=== PATIENT | female | born 1965 | race Hispanic/Latino ===

== ENCOUNTER 2018-04-13 20:02 | Emergency (ER) | payer OTHER ==
[2018-04-13] MEDS ORDERED: ONDANSETRON HCL 4 MG/2 ML VIAL ONE (22:15)
[2018-04-15] MEDS ORDERED: PROPOFOL 10 MG/ML 20ML VIAL IV ONE (09:47)
== END 2018-04-13 22:06 | disposition home or self-care (01) ==
LOC: EDH 20:02
DX: S90.31XA Contusion of right foot, initial encounter (principal); E11.9 Type 2 diabetes mellitus without complications; E78.5 Hyperlipidemia, unspecified; I10 Essential (primary) hypertension; M81.0 Age-related osteoporosis without current pathological fracture; M79.7 Fibromyalgia; Z88.6 Allergy status to analgesic agent; Z90.49 Acquired absence of other specified parts of digestive tract; Z90.710 Acquired absence of both cervix and uterus; X58.XXXA Exposure to other specified factors, initial encounter; Y93.89 Activity, other specified; Y92.89 Other specified places as the place of occurrence of the external cause; Y99.8 Other external cause status
CPT/HCPCS: 73630; J2405

== ENCOUNTER → 2018-08-05 | Outpatient (CLI) | payer OTHER | END | disposition home or self-care (01) | LOC: RAH 14:09 | PROVIDERS: ATTEND Family Medicine | DX: Z12.31 Encounter for screening mammogram for malignant neoplasm of breast (principal) | CPT/HCPCS: 77067 ==

== ENCOUNTER 2022-03-05 16:58 | Emergency (ER) | payer OTHER ==
[~2022-03-05] VITALS: Ht 154.9 cm; Wt 99.3 kg
[2022-03-05 17:20] LABS: BASOPHILS % (AUTO) 0.3 % (0.0-5.0); EOSINOPHILS % (AUTO) 2.2 % (0.0-8.0); HEMATOCRIT 42.6 % (36-48); LYMPHOCYTES % (AUTO) 30.1 % (21.0-51.0); MEAN CORPUSCULAR HEMOGLOBIN 26.2 pg (27.0-33.0); MEAN CORPUSCULAR HGB CONC 31.7 g/dL (32.0-36.0); MEAN CORPUSCULAR VOLUME 82.7 fL (79-99); MONOCYTES % (AUTO) 6.3 % (3.0-13.0); NEUTROPHILS % (AUTO) 60.6 % (40.0-77.0); PLATELET COUNT (AUTO) 264 K/uL (130-400); RED BLOOD CELL COUNT(AUTO) 5.15 MIL/uL (4.00-5.50); RED CELL DISTRIBUTION WIDTH 14.6 % (11.0-15.5); WHITE BLOOD COUNT (AUTO) 8.8 K/uL (4.8-10.8)
[2022-03-05 17:44] LABS: CREATININE 1.1 mg/dL (0.5-1.5); POTASSIUM 3.8 mmol/L (3.5-5.1)
[2022-03-05 17:50] LABS: ALBUMIN 3.2 g/dL (3.5-5.0); TOTAL PROTEIN, SERUM 7.3 g/dL (6.0-8.3)
[2022-03-05 17:56] LABS: APPEARANCE,URINE CLEAR (CLEAR); BILIRUBIN,URINE NEGATIVE (NEGATIVE); COLOR,URINE YELLOW (YELLOW); GLUCOSE, URINE (UA) NEGATIVE (NEGATIVE); KETONES,URINE NEGATIVE (NEGATIVE); LEUKOCYTE ESTERASE ,URINE NEGATIVE (NEGATIVE); NITRATE,URINE NEGATIVE (NEGATIVE); OCCULT BLOOD,URINE SMALL (NEGATIVE); PROTEIN,URINE NEGATIVE (NEGATIVE); UROBILINOGEN,URINE 0.2 mg/dL (0.2-1.0)
[2022-03-05 18:01] LABS: B-TYPE NATRIURETIC PEPTIDE < 5 pg/mL (0-100)
[2022-03-05 18:11] LABS: RBC,URINE 0-1 /HPF (0-1); WBC,URINE 0-1 /HPF (0-1)
[2022-03-05 18:12] LABS: BACTERIA,URINE Few /HPF (None Seen); SQUAMOUS EPITHELIAL CELL,UR Few /HPF (0-2)
[2022-03-05 19:19] VITALS: BP 141/84
== END 2022-03-05 19:21 | disposition home or self-care (01) ==
LOC: EDH 16:58
DX: R07.89 Other chest pain (principal); E66.01 Morbid (severe) obesity due to excess calories; E11.9 Type 2 diabetes mellitus without complications; E78.00 Pure hypercholesterolemia, unspecified; I10 Essential (primary) hypertension; Z68.41 Body mass index [BMI] 40.0-44.9, adult
CPT/HCPCS: 36415; 71045; 80053; 81001; 82550; 83880; 84484; 85025; 93005

== ENCOUNTER 2022-08-03 16:43 | Emergency (ER) | payer OTHER, SELFPAY ==
[~2022-08-03] VITALS: Ht 154.9 cm; Wt 101.2 kg
[2022-08-03 19:07] LABS: BASOPHILS % (AUTO) 0.4 % (0.0-5.0); HEMATOCRIT 42.5 % (36-48); LYMPHOCYTES % (AUTO) 25.6 % (21.0-51.0); MEAN CORPUSCULAR HEMOGLOBIN 26.9 pg (27.0-33.0); MEAN CORPUSCULAR VOLUME 84.2 fL (79-99); NEUTROPHILS % (AUTO) 64.5 % (40.0-77.0); PLATELET COUNT (AUTO) 285 K/uL (130-400); RED BLOOD CELL COUNT(AUTO) 5.05 MIL/uL (4.00-5.50); RED CELL DISTRIBUTION WIDTH 14.9 % (11.0-15.5); WHITE BLOOD COUNT (AUTO) 11.2 K/uL (4.8-10.8)
[2022-08-03 19:15] LABS: CREATININE 1.1 mg/dL (0.5-1.5)
[2022-08-03 19:20] LABS: ALBUMIN 3.3 g/dL (3.5-5.0)
[2022-08-03 20:14] LABS: APPEARANCE,URINE CLEAR (CLEAR); BILIRUBIN,URINE NEGATIVE (NEGATIVE); COLOR,URINE LIGHT-YELLOW (YELLOW); GLUCOSE, URINE (UA) NEGATIVE (NEGATIVE); KETONES,URINE NEGATIVE (NEGATIVE); LEUKOCYTE ESTERASE ,URINE NEGATIVE Leu/uL (NEGATIVE); NITRATE,URINE NEGATIVE (NEGATIVE); PH,URINE 5.5 (5.0-8.0); PROTEIN,URINE NEGATIVE (NEGATIVE); UROBILINOGEN,URINE 0.2 mg/dL (0.2-1.0)
[2022-08-03 20:18] LABS: BACTERIA,URINE FEW /HPF (None Seen); MUCUS,URINE RARE LPF (None Seen); SQUAMOUS EPITHELIAL CELL,UR RARE /HPF (0-2)
[2022-08-03] MEDS ORDERED: IOHEXOL 350 MG/ML 100ML INFUS..BTL IV ONE (21:49)
[2022-08-03] MEDS ORDERED: DICY10 PO (22:52)
[2022-08-03] MEDS ORDERED: OMEP20TA2 PO (22:52)
[2022-08-03 23:06] VITALS: BP 122/66
== END 2022-08-03 23:08 | disposition home or self-care (01) ==
LOC: EDH 16:43
DX: R10.11 Right upper quadrant pain (principal); R11.0 Nausea; E11.9 Type 2 diabetes mellitus without complications; E78.00 Pure hypercholesterolemia, unspecified; I10 Essential (primary) hypertension; K21.9 Gastro-esophageal reflux disease without esophagitis; Z90.49 Acquired absence of other specified parts of digestive tract; Z90.710 Acquired absence of both cervix and uterus; Z88.5 Allergy status to narcotic agent
CPT/HCPCS: 36415; 74176; 80053; 81001; 83690; 85025; Q9967

== ENCOUNTER 2022-10-01 07:41 | Emergency (ER) | payer OTHER ==
[~2022-10-01] VITALS: Ht 154.9 cm; Wt 104.3 kg
[~2022-10-01 07:41] MED LIST: DICY10 PO; OMEP20TA2 PO
[2022-10-01 08:14] LABS: BASOPHILS % (AUTO) 0.6 % (0.0-5.0); EOSINOPHILS % (AUTO) 3.1 % (0.0-8.0); LYMPHOCYTES % (AUTO) 26.7 % (21.0-51.0); MEAN CORPUSCULAR HEMOGLOBIN 26.2 pg (27.0-33.0); MEAN CORPUSCULAR VOLUME 84.5 fL (79-99); MONOCYTES % (AUTO) 5.7 % (3.0-13.0); NEUTROPHILS % (AUTO) 63.2 % (40.0-77.0); PLATELET COUNT (AUTO) 275 K/uL (130-400); RED BLOOD CELL COUNT(AUTO) 4.97 MIL/uL (4.00-5.50); RED CELL DISTRIBUTION WIDTH 14.6 % (11.0-15.5); WHITE BLOOD COUNT (AUTO) 8.7 K/uL (4.8-10.8)
[2022-10-01 08:25] LABS: APPEARANCE,URINE CLOUDY (CLEAR); BILIRUBIN,URINE NEGATIVE (NEGATIVE); COLOR,URINE YELLOW (YELLOW); GLUCOSE, URINE (UA) NEGATIVE (NEGATIVE); KETONES,URINE NEGATIVE (NEGATIVE); LEUKOCYTE ESTERASE ,URINE NEGATIVE Leu/uL (NEGATIVE); NITRATE,URINE NEGATIVE (NEGATIVE); PH,URINE 5.5 (5.0-8.0); PROTEIN,URINE 10 mg/dL (NEGATIVE); UROBILINOGEN,URINE 0.2 mg/dL (0.2-1.0)
[2022-10-01 08:28] LABS: ALBUMIN 3.2 g/dL (3.5-5.0); POTASSIUM 3.9 mmol/L (3.5-5.1); TOTAL PROTEIN, SERUM 7.5 g/dL (6.0-8.3)
[2022-10-01] MEDS ORDERED: KETOROLAC 15MG/ML VIAL (15MG/ML) IV ONE (08:30)
[2022-10-01] MEDS ORDERED: ONDANSETRON 4MG INJ IV ONE (08:30)
[2022-10-01 08:32] LABS: MUCUS,URINE RARE LPF (None Seen); SQUAMOUS EPITHELIAL CELL,UR MANY /HPF (0-2); WBC,URINE 0-1 /HPF (0-1)
[2022-10-01] MEDS ORDERED: IOHEXOL 350 MG/ML 100ML INFUS..BTL IV ONE (08:44)
[2022-10-01] MEDS ORDERED: IBUP-2077 PO (09:51)
[2022-10-01 10:03] VITALS: BP 122/61
== END 2022-10-01 10:08 | disposition home or self-care (01) ==
LOC: EDH 07:41
DX: R10.11 Right upper quadrant pain (principal); K31.89 Other diseases of stomach and duodenum; I10 Essential (primary) hypertension; E11.9 Type 2 diabetes mellitus without complications; E78.00 Pure hypercholesterolemia, unspecified; J45.909 Unspecified asthma, uncomplicated; K21.9 Gastro-esophageal reflux disease without esophagitis; M19.90 Unspecified osteoarthritis, unspecified site; M79.7 Fibromyalgia; Z88.5 Allergy status to narcotic agent; Z90.49 Acquired absence of other specified parts of digestive tract; Z90.710 Acquired absence of both cervix and uterus; Z98.890 Other specified postprocedural states
CPT/HCPCS: 99285; 74177; 96374; 96375; 80053; 83690; 85025; 81001; 36415; J2405; J1885; Q9967

== ENCOUNTER → 2025-04-02 | Outpatient (CLI) | payer OTHER, MEDICAID ==
[~2025-04-02] MED LIST changes: +GADOTERATE MEGLUMINE 10 MMOL/20 ML VIAL IV ONE; +IBUP-2077 PO
--- NOTE | 2025-04-02 18:13 | HMCIMG ---
EXAM: MR TIB/FIB WITHOUT CONTRAST CLINICAL HISTORY: 59 year old female, mass TECHNIQUE: Multiplanar multisequence magnetic resonance images were obtained WITHOUT contrast. CONTRAST: None COMPARISON: None FINDINGS: JOINTS: Unremarkable. No dislocation or significant effusion. BONE: No acute fracture or focal osseous lesion. SOFT TISSUES: No definite mass identified. Follow-up as clinically indicated. IMPRESSION: 1. No definite mass identified. Follow-up as clinically indicated. /[place]
== END | disposition home or self-care (01) ==
LOC: RAH 08:04
PROVIDERS: ATTEND Family Medicine
DX: R93.89 Abnormal findings on diagnostic imaging of other specified body structures (principal); L98.9 Disorder of the skin and subcutaneous tissue, unspecified
CPT/HCPCS: 73720; A9575

== ENCOUNTER 2025-04-24 21:37 | Emergency (ER) | payer OTHER, MEDICAID ==
[~2025-04-24] VITALS: Ht 152.4 cm; Wt 85.3 kg
[~2025-04-24 21:37] MED LIST changes: -GADOTERATE MEGLUMINE 10 MMOL/20 ML VIAL IV ONE
[2025-04-24 21:39] VITALS: TEMP 97.8
[2025-04-24 22:25] LABS: IMMATURE GRANULOCYTE ABSOLUTE 0.04 K/uL (0-1); NUCLEATED RED BLOOD CELLS 0.0 % (0.0-0.19); PLATELET COUNT (AUTO) 305 K/uL (130-400); RED BLOOD CELL COUNT(AUTO) 5.59 MIL/uL (4.00-5.50); RED CELL DISTRIBUTION WIDTH 14.1 % (11.0-15.5); WHITE BLOOD COUNT (AUTO) 10.8 K/uL (4.8-10.8)
[2025-04-24] MEDS: LACTATED RINGERS 1000ML 1,000 ML IV ONE (22:31)
[2025-04-24] MEDS: FAMOTIDINE 20MG VIAL IV ONE (22:31)
[2025-04-24 22:36] LABS: CREATININE 0.8 mg/dL (0.5-1.0); GLOMERULAR FILTR. RATE CALC 84.0 mL/min (>90); GLUCOSE,RANDOM 119.0 mg/dL (70-105); SODIUM SERUM 141.0 mmol/L (136-145); UREA NITROGEN, BLOOD 21.0 mg/dL (7-18)
[2025-04-24 22:44] LABS: ASPARTATE AMINOTRANSFERASE 22.0 U/L (10-37); TOTAL PROTEIN, SERUM 8.1 g/dL (6.0-8.3)
[2025-04-24] MEDS ORDERED: IOHEXOL 350 MG/ML 100ML INFUS..BTL IV ONE (23:11)
[2025-04-25] MEDS ORDERED: IOHEXOL 350 MG/ML 100ML INFUS..BTL IV ONE (00:03)
--- NOTE | 2025-04-25 00:26 | NUR ---
PATIENT AT CT SCAN AT THIS TIME.
[2025-04-25 00:53] VITALS: BP 127/71; PULSE 97; RESP 18; O2SAT 97
--- NOTE | 2025-04-25 01:19 | HMCIMG ---
EXAM: CT Abdomen and Pelvis with IV contrast CLINICAL HISTORY: Diffuse abdominal pain. TECHNIQUE: Thin collimated axial CT images of the abdomen and pelvis were obtained, with sagittal and coronal reformatted images also submitted. A CT scan is done according to ALARA (As Low As Reasonably Achievable). CONTRAST: Omnipaque 350 COMPARISON: Prior CT abdomen and pelvis dated 10/01/22. FINDINGS: Unremarkable visualized lung parenchyma. No focal abnormality within the liver, pancreas, spleen, or adrenals. Status post cholecystectomy. 7 mm left renal cortical cyst. Nondilated fluid-filled small and large bowel loops without any zone of transition; this could be a nonspecific finding, or may be present in the clinical setting of acute enterocolitis. Bowel loops are normal in caliber without evidence of obstruction or ileus. The appendix is normal. There is no abnormality within the urinary bladder. Status post hysterectomy. Abdominal and pelvic vessels are patent. No lymphadenopathy. No free fluid. There is no acute osseous abnormality. IMPRESSIONS: Nondilated fluid-filled small and large bowel loops without any zone of transition; this could be a nonspecific finding, or may be present in the clinical setting of acute enterocolitis. No interval change. /[place]
[2025-04-25] MEDS ORDERED: METR-172 PO (01:37)
--- NOTE | 2025-04-25 01:39 | ERN ---
General Chief Complaint: Abdominal Pain Stated Complaint: C/O ABD PAIN, HEARTBURN, N X V X DIARRHEA Time Seen by MD: 21:45 Time Seen by Midlevel: 21:45 Source: patient History of Present Illness Initial Comments 59-year-old female with a past medical history of type 2 diabetes, fibromyalgia, hyperlipidemia, and hypertension presents to the emergency department for evaluation of diffuse abdominal pain with associated nausea, vomiting, and diarrhea. Allergies: Coded Allergies: codeine (Unverified Allergy, Unknown, 08/03/22) Home Meds Active Scripts Metronidazole (Metronidazole) 500 Mg Tablet, 1 TAB PO BID for 5 Days, #10 TAB 0 Refills Prov:MALLIKA CHARLES PAC 04/25/25 Ibuprofen (Ibuprofen 800 mg Tab) 800 Mg Tab, 800 MG PO Q8H PRN for fever or pain, #30 TAB 0 Refills Prov:DOT FRY MD 10/01/22 Dicyclomine HCl (Bentyl) 10 Mg Cap, 10 MG PO TID PRN for PAIN, #30 CAP Prov:PARTH REYES MD 08/03/22 Omeprazole Magnesium (Prilosec Otc) 20 Mg Tablet.dr, 20 MG PO DAILY, #30 TAB Prov:PARTH REYES MD 08/03/22 Past Medical History Past Medical History: Arthritis, Asthma, Diabetes-Type II, Fibromyalgia, High Cholesterol, Hypertension Medical History Other: Obesity Past Surgical History: Hysterectomy, Cholecystectomy, Other Surgical History Other: CARPAL TUNNEL-RT, CYST REMOVAL ON BACK Family History Family History: Negative Social History Social History: Negative ROS Dictation CONSTITUTIONAL: Negative except for HPI HEAD/FACE: Negative except for HPI EENT: Negative except for HPI RESPIRATORY: Negative except for HPI GASTROINTESTINAL/ABDOMINAL: Negative except for HPI GENITOURINARY: Negative except for HPI MUSCULOSKELETAL: Negative except for HPI INTEGUMENTARY: Negative except for HPI NEUROLOGICAL/PSYCH: Negative except for HPI HEMATOLOGIC/LYMPHATIC: Negative except for HPI All Systems Negative, Except as noted above. 13 point review of systems assessed and all negative except for above. Physical Exam Physical Exam Dictation Vital Signs reviewed General Appearance: Alert, oriented x 3, no acute distress, well developed, nourished. Head and Face: non-traumatic. Eyes: PERRL, pink conjunctivas, eyelid no trauma, anterior chamber with arcus senilis. Ears: Pinnas intact and no signs of trauma or erythema ear canals clear and no discharge TM no erythema Nose: No discharge, no bleeding. Oropharynx: Mouth normal, tongue pink, pharynx clear,no erythema, tonsils no exudates, no abscesses noted, mucous membrane moist Neck: Supple, non-tender, no thyromegaly, no masses, no JVD, no bruits Breast:Deferred Chest:No tenderness, no crepitus, no paradoxical movement, no retractions Lungs:Clear, well-ventilated, symmetric, no rales, no wheezing, no rhonchi, no stridor, good breath sounds bilaterally Heart: Regular rate, regular rhythm, no murmur, no gallops Vascular: no peripheral edema, Abdomen: Soft, positive bowel sounds, nondistended, no guarding, nontender, no rebound, no masses no hepatomegaly, no splenomegaly, no Wayne's sign, no hernias. Rectal: Deferred Genital: Deferred Neurological: Normal speech, motor function intact, sensory function intact Musculoskeletal: Neck nontender, full range of motion, back nontender, full range of motion, Extremities: nontender, full range of motion Skin: Color pink, dry, no turgor, no rash, no lacerations, no abrasions, no contusions. Lymphatic: Deferred Results Laboratory and Microbiology Lab and Micro Result Laboratory Tests Test 04/24/25 01:34 04/24/25 22:05 Urine Color LIGHT-YELLOW (YELLOW) Urine Appearance CLEAR (CLEAR) Urine pH 6.0 (5.0-8.0) Urine Specific [place] <1.005 (1.001-1.031) Urine Protein 30 mg/dL (NEGATIVE) H Urine Glucose (UA) NEGATIVE mg/dL (NEGATIVE) Urine Ketones NEGATIVE mg/dL (NEGATIVE) Urine Occult Blood NEGATIVE (NEGATIVE) Urine Nitrate NEGATIVE (NEGATIVE) Urine Bilirubin NEGATIVE mg/dL (NEGATIVE) Urine Urobilinogen 0.2 mg/dL (0.2-1.0) Urine Leukocyte Esterase NEGATIVE Matt/uL Urine RBC 2-5 /HPF (0-1) H Urine WBC 0-1 /HPF (0-1) Urine Squamous Epithelial Cells MOD /HPF (0-2) Urine Bacteria FEW /HPF (None Seen) White Blood Count 10.8 K/uL (4.8-10.8) Red Blood Count 5.59 MIL/uL (4.00-5.50) H Hemoglobin 15.1 g/dL (12.0-16.0) Hematocrit 46.2 % (36-48) Mean Corpuscular Volume 82.6 fL (79-99) Mean Corpuscular Hemoglobin 27.0 pg (27.0-33.0) Mean Corpuscular Hemoglobin Concent 32.7 g/dL (32.0-36.0) Red Cell Distribution Width 14.1 % (11.0-15.5) Platelet Count 305 K/uL (130-400) Mean Platelet Volume 10.0 fL (7.5-10.5) Immature Granulocyte % (Auto) 0.4 % (0-1) Neutrophils (%) (Auto) 67.5 % (40.0-77.0) Lymphocytes (%) (Auto) 23.1 % (21.0-51.0) Monocytes (%) (Auto) 6.6 % (3.0-13.0) Eosinophils (%) (Auto) 2.2 % (0.0-8.0) Basophils (%) (Auto) 0.2 % (0.0-5.0) Neutrophils # (Auto) 7.3 K/uL (1.8-7.7) Lymphocytes # (Auto) 2.5 K/uL (1.0-4.8) Monocytes # (Auto) 0.7 K/uL (0.1-1.0) Eosinophils # (Auto) 0.24 K/uL (0.00-0.70) Basophils # (Auto) 0.02 K/uL (0.00-0.20) Absolute Immature Granulocyte (auto 0.04 K/uL (0-1) Nucleated Red Blood Cells 0.0 % (0.0-0.19) Sodium Level 141 mmol/L (136-145) Potassium Level 4.1 mmol/L (3.5-5.1) Chloride Level 104 mmol/L (101-111) Carbon Dioxide Level 24 mmol/L (21-32) Blood Urea Nitrogen 21 mg/dL (7-18) H Creatinine 0.8 mg/dL (0.5-1.0) Glomerular Filtration Rate Calc 84 mL/min (>90) Random Glucose 119 mg/dL (70-105) H Total Calcium 10.0 mg/dL (8.5-10.1) Total Bilirubin 0.6 mg/dL (0.2-1.0) Aspartate Amino Transf (AST/SGOT) 22 U/L (10-37) Alanine Aminotransferase (ALT/SGPT) 35 U/L (12-78) Alkaline Phosphatase 199 U/L (50-136) H Troponin I High Sensitivity < 4 ng/L (4-50) L Total Protein 8.1 g/dL (6.0-8.3) Albumin 3.6 g/dL (3.5-5.0) Lipase 53 U/L (16-77) Labs Reviewed?: Yes MDM MDM: Differential diagnosis: Enterocolitis, viral gastroenteritis, dehydration, electrolyte abnormality There are no social concerns with this patient. Prescription drug management Prescriptions will include: Flagyl Medical management and examination interpretation discussions were had by me with other qualified healthcare professionals as indicated for the patient's care. ED Course Orders Procedure Category Date Status Time Cbc With Differential LAB 04/24/25 Complete 21:57 Comprehensive LAB 04/24/25 Complete Metabolic Panel 21:57 Lipase LAB 04/24/25 Complete 21:57 Troponin I High LAB 04/24/25 Complete Sensitivity 21:57 Urinalysis Profile LAB 04/24/25 Complete 21:57 Lactated Ringers PHA 04/24/25 Complete 1000ml (Lactated 22:30 Ondansetron 4mg Inj PHA 04/24/25 Complete (Zofran 4mg Inj) 22:30 Famotidine 20mg Vial PHA 04/24/25 Complete (Pepcid 20mg Vial) 22:30 Ct Abdomen/Pelvis CT 04/24/25 Resulted W/Contrast 23:11 Iohexol (Omnipaque) PHA 04/25/25 Complete 00:03 Current Medications Medications (Trade) Dose Ordered Sig/Carmen Route PRN Reason Start Time Stop Time Status Last Admin Dose Admin Famotidine (Pepcid 20mg Vial) 20 mg ONCE ONCE IV 04/24/25 22:30 04/24/25 22:31 DC 04/24/25 22:31 Iohexol (Omnipaque) 35,000 mg STK-MED ONCE IV 04/25/25 00:03 04/25/25 00:03 DC Lactated Ringer's 1,000 ml @ 0 mls/hr Q0M ONCE IV 04/24/25 22:30 04/24/25 22:31 DC 04/24/25 22:31 Ondansetron HCl (zoFRAN 4MG INJ) 4 mg ONCE ONCE IVP 04/24/25 22:30 04/24/25 22:31 DC 04/24/25 22:31 Vital Signs Date Time Temp Pulse Resp B/P (MAP) Pulse Ox O2 Delivery O2 Flow Rate FiO2 04/25/25 00:53 97 18 127/71 97 Room Air* 0 21 04/24/25 22:41 95 18 137/83 97 Room Air* 0 21 04/24/25 21:39 97.9 86 20 133/79 97 Room Air DX & DISP Disposition: Discharge Departure Impression: Primary Impression: Enterocolitis Condition: Stable Scripts Metronidazole (Metronidazole) 500 Mg Tablet 1 TAB PO BID for 5 Days, #10 TAB 0 Refills Prov: MALLIKA CHARLES PAC 04/25/25 Additional Instructions: Blood work today is unremarkable. Your white blood cell count is normal which decreases the likelihood of a systemic infection. Your electrolytes are normal. Your kidney function is normal. Your CT scan of the abdomen/pelvis shows findings consistent with enterocolitis. This is most likely related to something that you ate. I will go ahead and start you on antibiotics which help improve your diarrhea over the next couple of days. Drink plenty of fluids. Start with a bland diet. Gradually return to normal foods as tolerated. Avoid greasy, spicy, or high-fiber foods until symptoms improve. Follow up with your primary care doctor in 2-3 days repeat evaluation. Return the ER for any new or worsening symptoms Referrals: RONI AUGUSTE M.D. (PCP) I have reviewed the case, and I agree with, Diagnosis and Plan I performed the substantive portion of the visit. I have reviewed and personally made and approve the management plan that is documented in the note by myself or the JAMILA. I acknowledge for responsibility for the patient's management plan. MALLIKA CHARLES PAC Apr 25, 2025 01:39
[2025-04-25 01:50] LABS: ADD UA MICROSCOPIC YES; APPEARANCE,URINE CLEAR (CLEAR); GLUCOSE, URINE (UA) NEGATIVE (NEGATIVE); LEUKOCYTE ESTERASE ,URINE NEGATIVE Leu/uL (NEGATIVE); NITRATE,URINE NEGATIVE (NEGATIVE); OCCULT BLOOD,URINE NEGATIVE (NEGATIVE)
[2025-04-25 01:51] LABS: SQUAMOUS EPITHELIAL CELL,UR MOD /HPF (0-2)
== END 2025-04-25 02:03 | disposition home or self-care (01) ==
LOC: EDH 21:37
DX: K52.9 Noninfective gastroenteritis and colitis, unspecified (principal); R11.2 Nausea with vomiting, unspecified; M19.90 Unspecified osteoarthritis, unspecified site; J45.909 Unspecified asthma, uncomplicated; I10 Essential (primary) hypertension; E78.00 Pure hypercholesterolemia, unspecified; M79.7 Fibromyalgia; E66.9 Obesity, unspecified; E11.9 Type 2 diabetes mellitus without complications; Z79.899 Other long term (current) drug therapy; Z88.5 Allergy status to narcotic agent; Z90.710 Acquired absence of both cervix and uterus; Z90.49 Acquired absence of other specified parts of digestive tract
CPT/HCPCS: 36415; 74177; 80053; 81001; 83690; 84484; 85025; 96374; 96375; 99285; J2405; J7120; Q9967; J1308